=== PATIENT | female | born 1945 | race American Indian/Alaskan Native ===

== ENCOUNTER 2020-11-23 09:14 | Outpatient (CLI) | payer MEDICARE ==
--- NOTE | 2020-11-23 10:00 | XRay Report ---
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 No acute fracture or dislocati on. Signer Name: Hector Olsen MD Signed: 11/23/2020 9:56 AM Workstation Name: [id number]
== END 2020-11-23 09:15 | disposition home or self-care (01) ==
LOC: XRAY 09:14
PROVIDERS: ATTEND Nurse Practitioner Family
DX: M19.011 Primary osteoarthritis, right shoulder (principal); M75.21 Bicipital tendinitis, right shoulder